=== PATIENT | female | born 1960 | race Two or more races ===

== ENCOUNTER 2021-07-21 07:42 | Outpatient (CLI) | payer OTHER | END 2021-07-21 07:56 | disposition home or self-care (01) | LOC: MRI 07:42 | DX: N70.11 Chronic salpingitis (principal) | CPT/HCPCS: 72197 ==

== ENCOUNTER 2021-11-06 07:42 | Outpatient (CLI) | payer OTHER | END 2021-11-06 07:48 | disposition home or self-care (01) | LOC: TOM 07:42 | DX: K86.2 Cyst of pancreas (principal); K76.0 Fatty (change of) liver, not elsewhere classified; F17.200 Nicotine dependence, unspecified, uncomplicated ==

== ENCOUNTER 2022-03-16 07:31 | Outpatient (CLI) | payer OTHER | END 2022-03-16 07:45 | disposition home or self-care (01) | LOC: MRI 07:31 | DX: R51.9 Headache, unspecified (principal); G40.804 Other epilepsy, intractable, without status epilepticus; R20.2 Paresthesia of skin | CPT/HCPCS: 70551 ==

== ENCOUNTER 2023-03-28 15:21 | Emergency (ER) | payer OTHER ==
[~2023-03-28] VITALS: Ht 149.9 cm; Wt 74.8 kg
[2023-03-28] MEDS ORDERED: KEPPRA500 MG PO (16:30)
[2023-03-28] MEDS ORDERED: COZAAR100 MG PO (16:31)
[2023-03-28] MEDS ORDERED: HYDRALAZINE HCL10 MG PO (16:31)
[2023-03-28] MEDS ORDERED: PEPCID20 MG PO (16:31)
[2023-03-28] MEDS ORDERED: LIPITOR40 M1 PO ×2 (16:31→16:32)
== END 2023-03-28 18:24 | disposition home or self-care (01) ==
LOC: ER 15:21
DX: M25.561 Pain in right knee (principal); I10 Essential (primary) hypertension

== ENCOUNTER 2023-04-20 08:37 | Outpatient (CLI) | payer OTHER ==
[~2023-04-20 08:37] MED LIST: COZAAR100 MG PO; HYDRALAZINE HCL10 MG PO; KEPPRA500 MG PO; LIPITOR40 M1 PO; PEPCID20 MG PO
== END 2023-04-20 08:42 | disposition home or self-care (01) ==
LOC: MRI 08:37
PROVIDERS: ATTEND Orthopaedic Surgery
DX: M25.461 Effusion, right knee (principal)
CPT/HCPCS: 73721

== ENCOUNTER 2023-06-30 07:47 | Outpatient (CLI) | payer OTHER | END 2023-06-30 07:54 | disposition home or self-care (01) | LOC: MRI 07:47 | PROVIDERS: ATTEND Psychiatry & Neurology Neurology | DX: G40.309 Generalized idiopathic epilepsy and epileptic syndromes, not intractable, without status epilepticus (principal) | CPT/HCPCS: 70551 ==

== ENCOUNTER 2023-08-29 07:29 | Outpatient (CLI) | payer OTHER | END 2023-08-29 07:30 | disposition home or self-care (01) | LOC: NUCLEAR 07:29 | DX: I67.9 Cerebrovascular disease, unspecified (principal); I10 Essential (primary) hypertension ==

== ENCOUNTER 2023-08-31 11:30 | Outpatient (CLI) | payer OTHER | END 2023-08-31 11:33 | disposition home or self-care (01) | LOC: EKG 11:30 | DX: I10 Essential (primary) hypertension (principal) ==

== ENCOUNTER 2025-05-27 07:25 | Outpatient (CLI) | payer OTHER | END 2025-05-27 07:28 | disposition home or self-care (01) | LOC: MAMO-SONO 07:25 | DX: Z12.31 Encounter for screening mammogram for malignant neoplasm of breast (principal) ==

== ENCOUNTER 2025-06-28 14:41 | Emergency (ER) | payer OTHER ==
[~2025-06-28] VITALS: Ht 152.4 cm; Wt 72.6 kg
[2025-06-28] MEDS ORDERED: METHYLPREDNISOLONE SOD SUCC 125 MG VIAL IM STA (17:04)
[2025-06-28] MEDS ORDERED: IPRATROPIUM BROMIDE 0.5 MG/2.5 ML AMPUL.NEB IH SCH ×2 (17:15→17:39)
[2025-06-28] MEDS ORDERED: LEVALBUTEROL HCL 0.63 MG/3 ML SOLUTION IH SCH ×2 (17:15→21:22)
[2025-06-28] MEDS ORDERED: IPRATROPIUM BROMIDE 0.5 MG/2.5 ML AMPUL.NEB IH ONE (17:39)
[2025-06-28] MEDS ORDERED: LEVALBUTEROL HCL 0.63 MG/3 ML SOLUTION IH ONE (17:39)
[2025-06-28] MEDS ORDERED: METHYLPREDNISOLONE SOD SUCC 40 MG VIAL ONE (22:21)
[2025-06-28 23:21] LABS: COVID-19 AG NEGATIVE (NEGATIVE)
[2025-06-28 23:38] LABS: BASO % 0.4 % (0.1-1.2); EOS # 0.14 (0.04-0.54); EOS % 1.5 % (0.7-7.0); LYMPH # 2.65 (1.18-3.74); LYMPH % 28.3 % (19.3-53.1); MEAN PLATELET VOLUME 10.10 fl (9.4-12.4); MONO # 0.66 (0.24-0.82); MONO % 7.0 % (4.7-12.5); NEUT # 5.86 (1.56-6.13); NEUT % 62.6 % (34.0-71.1); RED CELL DISTRIBUTION WIDTH 11.4 % (11.6-14.4)
[2025-06-28 23:42] LABS: ERYTHROCYTE SEDIMENTATION RATE 26 mm/hr (0-30)
[2025-06-28 23:45] LABS: ALT/SGPT 24.0 U/L (12-78); AST/SGOT 13.0 U/L (15-37); BILIRUBIN TOTAL 0.82 mg/dL (0.3-1.2); BUN CREA RATIO 19.0 (7.0-25.0); CREATININE SERUM 1.0 mg/dL (0.55-1.02); GFR 56.0; GLOBULINA 4.2 G/DL (2.4-3.5); GLUCOSE FASTING 141.0 mg/dL (65-100); OSMOLALITY SERUM 293.0 MOSM/KG (275-295)
== END 2025-06-29 02:50 | disposition home or self-care (01) ==
LOC: ER 14:42
PROVIDERS: Physician Assistant Medical
DX: J98.01 Acute bronchospasm (principal); J06.9 Acute upper respiratory infection, unspecified; I11.9 Hypertensive heart disease without heart failure; G40.802 Other epilepsy, not intractable, without status epilepticus; K76.0 Fatty (change of) liver, not elsewhere classified; E78.00 Pure hypercholesterolemia, unspecified; I10 Essential (primary) hypertension; Z20.822 Contact with and (suspected) exposure to COVID-19